=== PATIENT | female | born 1975 | race Caucasian/White ===

== ENCOUNTER 2018-03-09 17:10 | Observation (INO) ==
[2018-03-09 18:07] LABS: Basophils # 0.1 K/mcL (0.0-0.2); Basophils % 0.9 %; Eosinophils % 0.3 %; Hemoglobin 13.2 g/dL (11.5-15.4); Immature Granulocytes % 0.3 % (0-4); Lymphocytes # 2.3 K/mcL (0.6-4.6); Lymphocytes % 25.2 %; Mean Corpuscular HGB Conc 33.8 g/dL (31.6-35.5); Mean Corpuscular Hemoglobin 30.3 pg (28.0-33.3); Mean Corpuscular Volume 89.4 fL (83.0-100.0); Mean Platelet Volume 9.3 fL (9.4-12.4); Monocytes # 0.4 K/mcL (0.0-1.3); Neutrophils # 6.2 K/mcL (1.6-8.9); Platelet Count 283 K/mcL (140-400); Red Blood Count 4.36 M/mcL (3.82-4.97); Red Cell Distribution Width 12.8 % (11.5-14.5); Segmented Neutrophils % 69.3 %
[2018-03-09 18:24] LABS: BUN/Creatinine Ratio 6 (6-26); Blood Urea Nitrogen 4 mg/dL (6-20); Calcium 9.6 mg/dL (8.6-10.3); Carbon Dioxide 29 mEq/L (23-29); Chloride 100 mEq/L (98-107); Glucose 93 mg/dL (70-105); Osmolality,Calculated 281 (280-300); Potassium 3.1 mEq/L (3.5-5.1); Sodium 137 mEq/L (136-145); Troponin I < 0.03 ng/mL (< 0.04); eGFR For Non-African Americans > 60 (> 60)
--- NOTE | 2018-03-09 20:05 | Emergency Department Note ---
Disposition Clinical Impression: Neurological symptoms Disposition: Admitted As Inpatient Condition: Good Time of Disposition: 21:36 General Adult HPI - General Chief complaint: ED Chest Pain Stated complaint: "chest pain, tingling numbness on left side" Time Seen by Provider: 03/09/18 19:42 Source: patient Mode of arrival: ambulatory Limitations: no limitations Nursing Notes Reviewed: Yes Vital Signs Reviewed: Yes - History of Present Illness HPI Narrative: Patient is a 42-year-old female presents emergency Department with reports of left-sided weakness and chest pain. Patient states that his left-sided weakness is been intermittent over the past few days but is been worse the last 24 hours. Patient states that she does feel like she is having more difficulty with ambulation than normal. Patient states that her chest pain is nonradiating. Patient denies any nausea and diaphoresis or shortness of breath associated with her chest pain. Patient states that she has never had a stroke or TIA before. Patient does state that she was recently taken off her Klonopin in the past when her symptoms started. Patient states that this is very similar to when she has stopped her Klonopin in the past. Patient states that she was taking 1 mg Klonopin twice a day and was stopped abruptly by her psychiatrist. Patient states that she did take half of a Klonopin over the weekend and her symptoms did resolve. States that after she took the Klonopin her symptoms have now retu rned. Pain Scale: 5 - Related Data Home Medications Medication Instructions Recorded Confirmed clonazePAM [Clonazepam] 1 mg PO BID 01/25/18 03/09/18 Brexpiprazole [Rexulti] 0.5 mg PO DAILY 03/09/18 03/09/18 Buspirone HCl [Buspar] 7.5 mg PO BID 03/09/18 03/09/18 Allergies Allergy/AdvReac Type Severity Reaction Status Date / Time tetracycline [Tetracycline] AdvReac Cramping Verified 01/25/18 10:35 of the Muscles All systems ED: reviewed and negative except as stated. Constitutional: Denies: fever Cardiovascular: Reports: chest pain Respiratory: Denies: dyspnea Gastrointestinal: Denies: abdominal pain Neurological: Reports: weakness, numbness. 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 Absent: respiratory distress, wheezes - Cardiovascular Cardiovascular exam: Present: regular rate, normal rhythm, normal heart sounds, +S1, +S2 - Abdominal Exam Abdominal exam: Present: soft, Non-Tender, normal bowel sounds - Neurological Exam Neurological exam: Present: alert, oriented X3 - Expanded Neurological Exam Speech: Present: fluid speech Cranial nerves: EOM function (II, III, IV, ): Normal, facial sensation (V): Normal, facial palsy (VII): Normal, gag reflex (IX): Normal, spinal accessory function (XI): Normal, tongue deviation (XII): Normal Cerebellar function: finger to nose: Normal, heel to [place]: Normal Motor strength - LUE: 5/5 Motor strength - RUE: 5/5 Motor strength - LLE: 5/5 Motor strength - RLE: 5/5 Upper motor neuron exam: pronator drift: Present on left (Mild drift, does not hit the bed) Sensory exam upper extremity: light touch: Normal Sensory exam lower extremity: light touch: Normal Coma Scale Eye Opening: Spontaneous Coma Scale Motor Response: Obeys Commands Coma Scale Verbal Response: Oriented Coma Scale Total: 15 - Psychiatric Psychiatric exam: Present: normal affect, normal mood - Skin Skin exam: Present: warm, dry, intact Course Vital Signs Temperature 98.1 F 03/09/18 17:17 Pulse Rate 84 03/09/18 17:17 Respiratory Rate 17 03/09/18 17:17 Blood Pressure 119/78 03/09/18 17:17 O2 Sat by Pulse Oximetry 98 03/09/18 17:17 Temperature 98.1 F 03/09/18 20:00 Pulse Rate 57 03/09/18 21:00 Respiratory Rate 15 03/09/18 21:00 Blood Pressure 117/64 03/09/18 21:00 O2 Sat by Pulse Oximetry 100 03/09/18 21:00 Oxygen Delivery Oxygen Delivery Room Air Medical Decision Making - MDM Narrative Medical decision making narrative: Due the patient presenting to the emergency department with reports of chest pain this laboratory test was obtained from triage. Patient does have a mildly low potassium at 3.1. This will be replaced here in the emergency department. Based on the patient having an NIH of 2 and some mild drift in the upper and lower extremity and the left will obtain a CT scan of the head. Patient's head CT was negative. Patient's laboratory testing is relatively unremarkable. However based on the patient having neurologic symptoms I feel that is most appropriate for the patient to be admitted to the hospital for further evaluation and management. The Patient's Symptoms Are Inconsistent with the Patient Stating That after She Had Taken Half Klonopin Her Symptoms Resolved. However Based on the Patient Having Objective Findings on Exam I Feel That She Should Be Admitted for Further Workup of Her Neurologic Symptoms. I Did Call and Speak to the Admitting Hospitalist Dr. Ryan and he has accepted the patient to their service. Patient be admitted to the hospital at this time for further evaluation and management. - Medical Records Medical records reviewed: Yes I reviewed the patient's medical records. - Lab Data Lab results reviewed: Yes I reviewed the patient's lab results. Result diagrams: 03/09/18 17:44 03/09/18 17:44 Lab Results 03/09/18 03/09/18 Range/Units 17:44 17:44 WBC 8.9 (4.3-11.1) K/mcL RBC 4.36 (3.82-4.97) M/mcL Hgb 13.2 (11.5-15.4) g/dL Hct 39.0 (35.3-44.9) % MCV 89.4 (83.0-100.0) fL MCH 30.3 (28.0-33.3) pg MCHC 33.8 (31.6-35.5) g/dL RDW 12.8 (11.5-14.5) % Plt Count 283 (140-400) K/mcL MPV 9.3 L (9.4-12.4) fL Immature Gran % 0.3 (0-4) % Seg Neutrophils % 69.3 % Lymphocytes % 25.2 % Monocytes % 4.0 % Eosinophils % 0.3 % Basophils % 0.9 % Neutrophils # 6.2 (1.6-8.9) K/mcL Lymphocytes # 2.3 (0.6-4.6) K/mcL Monocytes # 0.4 (0.0-1.3) K/mcL Eosinophils # 0.0 (0.0-0.6) K/mcL Basophils # 0.1 (0.0-0.2) K/mcL Sodium 137 (136-145) mEq/L Potassium 3.1 L (3.5-5.1) mEq/L Chloride 100 (98-107) mEq/L Carbon Dioxide 29 (23-29) mEq/L BUN 4 L (6-20) mg/dL Creatinine 0.62 (0.60-1.20) mg/dL Est GFR ( Amer) > 60 (> 60) Est GFR (Non-Af Amer) > 60 (> 60) BUN/Creatinine Ratio 6 (6-26) Glucose 93 (70-105) mg/dL Calculated Osmolality 281 (280-300) Calcium 9.6 (8.6-10.3) mg/dL Troponin I < 0.03 (< 0.04) ng/mL - Radiology Data Radiology results reviewed: Yes I reviewed the patient's radiology results. Chest X-Ray 03/09/18 17:39 IMPRESSION: No acute process. D/ / Donavan Gage MD / Donavan Gage MD Interpreting Provider: Donavan Gage MD Head CT 03/09/18 20:01 IMPRESSION: No acute intracranial abnormality. New opacification of the maxillary sinuses bilaterally suggesting the possibility of sinusitis D/ / Donavan Gage MD / Donavan Gage MD Interpreting Provider: Donavan Gage MD - EKG Data EKG #1 EKG attestation: Yes I reviewed and interpreted this EKG. EKG results narrative: EKG showed a sinus rhythm at a rate of Attestation Statement - Attestation Attestation: I, Steven Budi, examined this patient and my medical decision-making was reviewed with the GEOCHEMIST/PA/Advanced Practice Nurse/Resident Physician. I agree with the documented findings, disposition and treatment plan as described except to the extent set forth below. 42-year-old female presents emergency Department with concerns of intermittent chest pain, left upper and left lower extremity paresthesias. Patient states she has increased weakness of the left upper and left lower extremities. Patient states symptoms have been present intermittently over the past 4-5 days. Patient believes that her symptoms are present secondary to withdrawal from Klonopin. Patient has been taking 1 mg of Klonopin twice a day, she was stopped "cold turkey" from Klonopin by her primary care provider and her last dose of Klonopin was yesterday where she found a 0.5 mg tab and took it. She states taking this medication helped her paresthesias yesterday. CT did not show evidence of acute intracranial hemorrhage. It is uncommon that Klonopin withdrawal would cause left-sided weakness and paresthesias however she has a left pronator drift on exam and 4 out of 5 strength in the left upper and left lower extremity. Patient will be admitted for further evaluation of possible CVA NIH Stroke Scale - Level of Consciousness LOC: Alert - LOC Questions LOC Questions: Answers both correctly - LOC Commands LOC Commands: Performs both correctly - Best Gaze Best Gaze: Normal - Visual Visual: No visual loss - Facial Palsy Facial Palsy: Normal - Motor Arms Motor Arm-Left: Drift, does NOT hit bed Motor Arm-Right: No drift for 10 seconds - Motor Legs Motor Leg-Left: Drift, does NOT hit bed Motor Leg-Right: No drift for 5 seconds - Limb Ataxia Limb Ataxia: Normal, No Ataxia - Sensory Sensory: Normal - Best Language Best Language: No aphasia - Dysarthria Dysarthria: Normal - Extinction and Inattention Extinction and Inattention: Normal - NIHSS Total Score NIHSS Total Score: 2
--- NOTE | 2018-03-09 22:22 | Internal Med History&Physical ---
Date of Encounter: 03/09/18 Time of Encounter: 22:20 Internal Medicine - H&P: HPI Chief complaint: left sided numbness Admitted From: Home Plans for Post Hospital Care: Home History of present illness: Marianne Lema is a 42-year-old woman with a history of bipolar disorder, anxiety disorder, anorexia nervosa and prior suicide attempts who brings herself into the ER today complaining of a tingling sensation affecting the left side of her body starting for the past 5 days. Her admission 2 months ago was for this very complaint and she reported it was related to 2 new psychotropic medications (vortioxetine and cariprazine) and stopped taking mirtazapine. Her evaluation was unremarkable. She comes in now stating that since her clonazepam was stopped, she started feeling the tingling. She then found half a pill somewhere yesterday and took it which improved her symptoms and now they are back again. Her evaluation in the ER was unremarkable other than serum potassium of 3.1 which is a recurring issue in her. She was admitted for observation of these symptoms. On my assessment she is sitting up in bed comfortable, talking smiling and completely mobile with no complaints. Exam: Vitals: Reviewed General: Emaciated white woman lying comfortably in bed in NAD. Skin: Poor turgor and wrinkled. HEENT: Moist mucous membranes. Mild conjunctivae pallor. Poor dentition. Neck: No lymphadenopathy. No JVD. No carotid bruits. No palpable thyroid. Chest: Normal thoracic expansion. Normal breath sounds. Clear to auscultation. Heart: Normal S1 & S2; rhythmic. No rubs or murmurs. Abdomen: Non-distended, soft and non-tender to palpation. No peritoneal reaction. Extremities: No clubbing, cyanosis or edema. No calf tenderness. Normal distal pulses. Neurological: Awake, alert and oriented to person, place and time. No focal deficits. Psych: Affect appropriate. Past Med Surg Social Fam HX - Past Medical History Medical history: no medical history Psychiatric history: anxiety, bipolar, panic disorder, PTSD - Past Surgical History Surgical History: - Social History Smoking Status: Current every day smoker Smokeless Tobacco Status: No (1 pack/day) Alcohol use: none Drug use: marijuana - Family History Mother Living Status: Hx Family Cardiac Disorders: Yes (heart attack, cva) Hx Family Cancer: Yes (choleangiocarcinoma) Father Living Status: Still Living Internal Medicine - H&P: Meds clonazePAM [Clonazepam] 1 mg PO BID 01/25/18 [History] Brexpiprazole [Rexulti] 0.5 mg PO DAILY 03/09/18 [History] Buspirone HCl [Buspar] 7.5 mg PO BID 03/09/18 [History] Allergy/AdvReac Type Severity Reaction Status Date / Time tetracycline [Tetracycline] AdvReac Cramping Verified 01/25/18 10:35 of the Muscles All Systems PM: A 10-system review of systems was performed and is negative for pertinent findings except as documented above in the HPI. - Constitutional Vitals: Temp Pulse Resp BP Pulse Ox 98.1 F 57 15 117/64 100 03/09/18 20:00 03/09/18 21:00 03/09/18 21:00 03/09/18 21:00 03/09/18 21:00 General appearance: Present: cachectic Exam: . Internal Med - H&P Results - Labs CBC & Chem 7: 03/09/18 17:44 03/09/18 17:44 Labs: Short CBC 03/09/18 Range/Units 17:44 WBC 8.9 (4.3-11.1) K/mcL Hgb 13.2 (11.5-15.4) g/dL Hct 39.0 (35.3-44.9) % Plt Count 283 (140-400) K/mcL Neutrophils # 6.2 (1.6-8.9) K/mcL BMP 03/09/18 17:44 Sodium 137 Potassium 3.1 L Chloride 100 Carbon Dioxide 29 BUN 4 L Creatinine 0.62 Glucose 93 Calcium 9.6 Cardiac Enzymes 03/09/18 Range/Units 17:44 Troponin I < 0.03 (< 0.04) ng/mL - Impressions ITS Impressions Chest X-Ray 03/09/18 17:39 IMPRESSION: No acute process. D/ / Donavna Gage MD / Donavan Gage MD Interpreting Provider: Donavan Gage MD Head CT 03/09/18 20:01 IMPRESSION: No acute intracranial abnormality. New opacification of the maxillary sinuses bilaterally suggesting the possibility of sinusitis D/ / Donavan Gage MD / Donavan Gage MD Interpreting Provider: Donavan Gage MD - Assessment and plan (1) Arm paresthesia, left Current Visit: Yes Status: Acute Assessment and plan: Seems psychiatric in origin given her recurring statement that it has to do with either initiation or stopping of some medication or another. No focal deficits or risk factors for CVA. Will not continue clonazepam as there may be a seeking tendency towards this. Head CT negative. Symptoms not concerning or progressive to warrant a brain MRI at this time. May also be associated with hypokalemic state. Will replete and monitor clinically. Observe overnight and can be dischar ged in the morning barring any unforeseen circumstances. (2) Hypokalemia Current Visit: Yes Status: Acute Assessment and plan: Possibly associated with poor intake and perhaps induced-emesis given her anorexic condition. Will continue supplementation and recheck K and Mg (3) Mood disorder Current Visit: Yes Status: Acute Assessment and plan: Stable. Resume home meds once verified. (4) Malnutrition Current Visit: Yes Status: Chronic Assessment and plan: Secondary to anorexia nervosa. Regular diet with supplementation. Qualifiers: Malnutrition type: protein-calorie malnutrition Protein-calorie malnutrition severity: severe Qualified Code(s): E43 - Unspecified severe protein-calorie malnutrition - Time Spent With Patient Total time spent is greater than 50% in coordination of care (as documented) at patient's floor/unit and/or counseling patient: Greater than 35 minutes
[2018-03-10] MEDS ORDERED: Potassium Chloride Elixir 20 MEQ/15 ML UDC PO ONE
[2018-03-10 00:10] LABS: Amphetamine Screen,Urine Negative ng/mL (Cutoff=1000); Barbiturate Screen,Urine Negative ng/mL (Cutoff=200); Benzodiazepines Screen,Urine Negative ng/mL (Cutoff=200); Cannabinoid Screen,Urine Positive ng/mL (Cutoff = 50); Cocaine Screen,Urine Negative ng/mL (Cutoff= 300); Opiate Screen,Urine Negative ng/mL (Cutoff=300); Phencyclidine Screen,Urine Negative ng/mL (Cutoff=25)
[2018-03-10] MEDS ORDERED: *HR* Heparin 5,000 UNIT/ML VIAL SQ SCH (06:00)
[2018-03-10] MEDS ORDERED: (Brexpiprazole [Rexulti] 0.5 MG) PO SCH (09:00)
[2018-03-10 11:54] LABS: BUN/Creatinine Ratio 9 (6-26); Blood Urea Nitrogen 5 mg/dL (6-20); Calcium 9.8 mg/dL (8.6-10.3); Carbon Dioxide 24 mEq/L (23-29); Chloride 103 mEq/L (98-107); Glucose 97 mg/dL (70-105); Osmolality,Calculated 281 (280-300); Potassium 4.6 mEq/L (3.5-5.1); Sodium 137 mEq/L (136-145); eGFR For Non-African Americans > 60 (> 60)
--- NOTE | 2018-03-10 16:10 | Discharge Summary ---
Date of Encounter: 03/10/18 Time of Encounter: 11:00 - Discharge Diagnosis (1) Arm paresthesia, left Priority: Primary Status: Acute (2) Hypokalemia Priority: Secondary Status: Acute (3) Mood disorder Priority: Secondary Status: Acute (4) Malnutrition Priority: Secondary Status: Chronic Qualifiers: Malnutrition type: protein-calorie malnutrition Protein-calorie malnutrition severity: severe Qualified Code(s): E43 - Unspecified severe protein-calorie malnutrition Hospital course: Patient is a 42-year-old female with past medical history significant for bipolar disorder, anxiety disorder, anorexia nervosa and prior suicide attempts who brings herself into the ER today complaining of a tingling sensation affecting the left side of her body starting for the past 5 days. Her admission 2 months ago was for this very complaint and she reported it was related to 2 new psychotropic medications (vortioxetine and cariprazine) and stopped taking mirtazapine. Her evaluation was unremarkable. She comes in now stating that since her clonazepam was stopped, she started feeling the tingling. She then found half a pill somewhere yesterday and took it which improved her symptoms and now they are back again. Her evaluation in the ER was unremarkable other than serum potassium of 3.1 which is a recurring issue in her. She was admitted for observation of these symptoms. During patients hospital stay a head CT was done which was negative for any acute findings. Patients symptoms resolved. She with no neurological findings on exam. Patient denied any suicidal ideations. She will be discharged to follow up with psychiatrist as an outpatient. - Time Spent with Patient Total time spent providing and/or coordinating discharge services: - Discharge Medications Home Medications: clonazePAM [Clonazepam] 1 mg PO BID 01/25/18 [History] Brexpiprazole [Rexulti] 0.5 mg PO DAILY 03/09/18 [History] Buspirone HCl [Buspar] 7.5 mg PO BID 03/09/18 [History] Allergies/Adverse Reactions: Allergy/AdvReac Type Severity Reaction Status Date / Time tetracycline [Tetracycline] AdvReac Cramping Verified 01/25/18 10:35 of the Muscles Date of admission: 03/09/18 23:11 Primary care physician: Ginger Hargrove Consults: 03/10/18 00:27 Consult to Nutrition [CONS] Routine Comment: Consulting Provider: NUTRITION Reason for Dietary Consult: MST Score - Constitutional Vitals: Temp Pulse Resp BP Pulse Ox 98.1 F 71 14 124/67 97 03/10/18 12:31 03/10/18 12:31 03/10/18 12:31 03/10/18 12:31 03/10/18 12:31 General appearance: Present: cachectic Exam: Gen.: Nonacute distress, alert and oriented 3 Skin: Normal color - Patient Status Disposition: Home, Self-Care Condition: Good - Discharge Instructions Instructions: Hypokalemia (DC), Depression (DC), Anxiety (DC) Follow Up With: Ginger Hargrove [Primary Care Provider] -
[2018-03-10 17:02] VITALS: BP 132/72
--- NOTE | 2018-03-10 17:58 | Electrocardiograph Report ---
[place] [id number] Test Date: 2018-03-09 Pat Name: Marianne Lema Department: 104 Room: 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
== END 2018-03-10 17:06 | disposition home or self-care (01) ==
LOC: 3NENU 17:10 → EMEROOARM 17:10 → SUATTDRO 23:11 → 3NENU 23:33
PROVIDERS: ADMIT Internal Medicine; ATTEND Hospitalist